=== PATIENT | female | born 1985 | race Caucasian/White ===

== ENCOUNTER 2018-10-05 10:44 | Emergency (ER) | payer MEDICAID ==
[~2018-10-05] VITALS: Ht 162.6 cm; Wt 100.1 kg
[~2018-10-05 10:44] MED LIST: CALC500T PO; FERR240T9 PO; IBUP-1544 PO; METF-849 PO; PREN1TAB49 PO
[2018-10-05 10:47] VITALS: Ht 162.6 cm; Wt 100.1 kg
[2018-10-05] MEDS ORDERED: SOD CHLORIDE 0.9% 1,000 ML IV STA ×2 (11:03→12:02)
--- NOTE | 2018-10-05 11:05 | ERD ---
ER Documentation Chief Complaint Chief Complaint sent by the clinic for increased blood sugar level ; felt dizzy HPI 33-year-old female who states for the past 2 weeks she has been feeling "not well.". She states she is been feeling nauseous and dizzy and always tired. She went to an outside facility and they did blood work and checked her blood sugar and it was found out to be 400. She did not know that she may be diabetic. She was not given any medications and was sent here for further evaluation. No vomiting. No fevers. ROS All systems reviewed and are negative except as per history of present illness. Medications Home Meds Active Scripts Metformin* (Glucophage*) 500 Mg Tab, 500 MG PO BID, #60 TAB Prov:ZAIDA LOZOYA PA-C 10/05/18 Ibuprofen* (Ibuprofen*) 800 Mg Tab, 800 MG PO Q8, #20 0 Refills Prov:ANNA BOWLING MD 01/18/15 Reported Medications Calcium Carbonate* (Os-Julián 500*) 1 Tab Tablet, 1 TAB PO BID, TAB 01/17/15 Ferrous Gluconate (Iron) 1 Tab Tablet, 1 TAB PO DAILY 01/17/15 Vits W-Ca,Fe,Fa(<1MG) () 1 Tab Tablet, 1 TAB PO DAILY 11/03/10 Allergies Allergies: Coded Allergies: No Known Drug Allergies (Verified Allergy, Unknown, 10/05/18) FmHx Family History: No diabetes Physical Exam Vitals Vital Signs Date Temp Pulse Resp B/P (MAP) Pulse Ox O2 O2 Flow FiO2 Time Delivery Rate 10/05/18 99.0 105 20 119/81 98 10:47 (94) Physical Exam INITIAL VITAL SIGNS: Reviewed by me GENERAL: Awake, alert and oriented x 4, well appearing, nontoxic, speaking in full sentences. No acute distress HEAD: Atraumatic NECK: Supple. No masses. Full range of motion. No meningismus. No midline tenderness. EYES: EOMI. PERRL. RESPIRATORY: Clear to auscultation bilaterally. Symmetric chest wall rise. No wheezing or rales. No accessory muscle use. CV: Regular rate and rhythm. No murmurs, rubs, or gallops. ABDOMEN: Soft, non-distended. Nontender. Negative [place]. Negative [place] point tenderness. No CVA tenderness bilaterally. No guarding. No rebound. Result Diagram: 10/05/18 1113 10/05/18 1113 Results 24 hrs Laboratory Tests Test 10/05/18 11:13 10/05/18 11:14 10/05/18 11:17 10/05/18 12:50 White Blood Count 5.8 10^3/ul Red Blood Count 4.90 10^6/ul Hemoglobin 14.0 g/dl Hematocrit 42.0 % Mean Corpuscular 85.7 fl Volume Mean Corpuscular 28.6 pg Hemoglobin Mean Corpuscular 33.3 g/dl Hemoglobin Concen t Red Cell 12.6 % Distribution Width Platelet Count 196 10^3/UL Mean Platelet 11.2 fl Volume Immature 0.200 % Granulocytes % Neutrophils % 49.6 % Lymphocytes % 35.3 % Monocytes % 6.9 % Eosinophils % 7.5 % Basophils % 0.5 % Nucleated Red 0.0 /100WBC Blood Cells % Immature 0.010 10^3/ul Granulocytes # Neutrophils # 2.9 10^3/ul Lymphocytes # 2.1 10^3/ul Monocytes # 0.4 10^3/ul Eosinophils # 0.4 10^3/ul Basophils # 0.0 10^3/ul Nucleated Red 0.0 10^3/ul Blood Cells # Sodium Level 137 mmol/L Potassium Level 4.5 mmol/L Chloride Level 98 mmol/L Carbon Dioxide 26 mmol/L Level Anion Gap 13 Blood Urea 9 mg/dl Nitrogen Creatinine 0.76 mg/dl Est Glomerular > 60 mL/min Filtrat Rate mL/min Glucose Level 401 mg/dl Calcium Level 9.9 mg/dl Total Bilirubin 0.8 mg/dl Direct Bilirubin 0.00 mg/dl Indirect 0.8 mg/dl Bilirubin Aspartate Amino 67 IU/L Transf (AST/SGOT) Alanine 98 IU/L Aminotransferase (ALT/SGPT) Alkaline 107 IU/L Phosphatase Total Protein 7.8 g/dl Albumin 4.9 g/dl Globulin 2.90 g/dl Albumin/Globulin 1.68 Ratio Urine Color YELLOW Urine Clarity SLIGHTLY CLOUDY Urine pH 5.0 Urine Specific 1.035 [place] Urine Ketones 2+ mg/dL Urine Nitrite NEGATIVE mg/dL Urine Bilirubin NEGATIVE mg/dL Urine NEGATIVE mg/dL Urobilinogen Urine Leukocyte NEGATIVE Christal/ul Esterase Urine Microscopic 2 /HPF RBC Urine Microscopic 4 /HPF WBC Urine Squamous FEW /HPF Epithelial Cells Urine Hemoglobin NEGATIVE mg/dL Urine Glucose 3+ mg/dL Urine Total NEGATIVE mg/dl Protein POC Beta HCG, NEGATIVE Qualitative Bedside Glucose 342 mg/dL Current Medications Medications Dose Sig/Bushra Start Time Status Last (Trade) Ordered Route PRN Stop Time Admin Dose Reason Admin Sodium 1,000 ml @ Q1H STAT 10/05/18 DC 10/05/18 Chloride 1,000 mls/hr IV 11:03 11:21 10/05/18 12:02 Sodium 1,000 ml @ Q1H STAT 10/05/18 10/05/18 Chloride 1,000 mls/hr IV 12:02 12:14 10/05/18 13:01 Metformin 500 mg ONCE ONCE 10/05/18 DC 10/05/18 HCl PO 12:30 12:20 (Glucophage) 10/05/18 12:31 Diagnostic 1 ea AC MEALS AND 10/05/18 Test (Pha) BEDTIME XX 17:30 (Accu-Chek) Procedures/MDM Is a 33-year-old female who was sent here for elevated blood sugar at an outside facility. She presents with what is likely new onset diabetes. IV access was established and she was given fluids and CBC chemistry panel was ordered. Blood sugar was elevated at 401 however there is no evidence of DKA. She got 2 L of fluids and then her blood sugar was in the 340s. She was given copies of her labs so she can follow-up with primary care however she states she does not have a primary care so she was given a list of outpatient community clinics as well as prescription for metformin. Patient counseled regarding my diagnostic impression and care plan. Prior to discharge all questions answered. Pt agrees with treatment plan and understands strict return precautions. Pt is instructed to follow up with primary care provider within 24-48 hours. Precautionary instructions provided including instructions to return to the ER if not improving or for any worsening or changing symptoms or concerns. Departure Diagnosis: Primary Impression: Diabetes mellitus, new onset Condition: Stable ZAIDA LOZOYA PA-C Oct 05, 2018 11:05
[2018-10-05] MEDS ORDERED: metFORMIN 500 MG TAB PO ONE (12:30)
[2018-10-05 13:27] VITALS: BP 116/64; PULSE 60; RESP 18
[2018-10-05] MEDS ORDERED: ACCU-CHEK XX SCH (17:30)
== END 2018-10-05 13:33 | disposition home or self-care (01) ==
LOC: FTE 10:44
DX: E11.9 Type 2 diabetes mellitus without complications (principal)
CPT/HCPCS: 36415; 80053; 81001; 81025; 82962; 85025; J7030; Z7502; Z7610; 81003